=== PATIENT | female | born 1940 | race Caucasian/White ===

== ENCOUNTER → 2016-08-09 | Outpatient (CLI) | payer OTHER ==
[~2016-08-09] MED LIST: FISH OIL 1,001000 M1 PO; LESCOL XL80 MG PO; LEVOTHROID175 MCG PO; LISINOPRIL40 MG PO; METOPROLOL SUCC25 M1 PO; OCUVITE TABLET1 EAC1 PO; PREDNISONE 20 M20 MG PO; PROMETHAZI6.25 MG/2 PO; QVAR HFA 440 MCG/UN1 INH; SPIRIVA INH; SPIRONOLACTONE25 M1 PO; VITAMINC500 PO
== END ==
LOC: CAT 14:07
DX: R06.02 Shortness of breath (principal); J44.9 Chronic obstructive pulmonary disease, unspecified; J90 Pleural effusion, not elsewhere classified

== ENCOUNTER 2017-11-29 12:45 | Emergency (ER) | payer OTHER ==
[~2017-11-29] VITALS: Ht 165.1 cm; Wt 43.1 kg
--- NOTE | ~2017-11-29 | EKG ---
[address] [address] ELECTROCARDIOGRAM REPORT Name: SANDRAANTONIO Lelo Room #: DEP [facility]#: [id number] Admission: 11/29/17 Attend Phys: Discharge: 11/29/17 Date of : 38 Report #: [id number] THIS REPORT FOR: //name// [facility] ED Test Date: 2017-11-29 Test Time: 13:05:57 Pat Name: ANTONIO FLORES Department: Room: Gender: F Dining Manager: 11 : 1940 Requested By: Florecita Darnell Order Number: [id number] MD: Dedrick Luevano Measurements Intervals [place] Rate: 97 P: 91 [place]: 134 QRS: 81 QRSD: 78 T: 69 QT: 324 QTc: 412 Interpretive Statements Sinus tachycardia Atrial premature complexes Biatrial enlargement Compared to ECG 01/27/2009 12:33:07 Atrial premature complex(es) now present ST (T wave) deviation no longer present Electronically Signed On 11-30-2017 8:33:02 CDT by Dedrick Luevano [email or web address] <ELECTRONICALLY SIGNED> By: Dedrick Luevano MD, [facility] 11/30/17 0833 1305 1305 Dedrick Luevano MD, [facility] /EPI
[2017-11-29] MEDS ORDERED: SYNTHROID88 MCG PO (12:53)
[2017-11-29 13:34] LABS: ABSOLUTE NEUTROPHILS 4.8 thou/uL (1.4-8.2); BASOPHILS 0.3 % (0.0-2.0); EOSINOPHILS 0.1 % (0.0-3.0); HEMATOCRIT 39.7 % (37.0-47.0); HEMOGLOBIN 13.7 gm/dL (12.0-15.0); LYMPHOCYTES 7.2 % (24.0-44.0); MCH 31.7 pg (26.0-34.0); MCHC 34.6 g/dL (28.0-37.0); MCV 91.6 fL (80.0-100.0); MONOCYTES 7.4 % (1.0-8.0); PLATELET COUNT 145 thou/uL (150-400); RBC 4.33 mil/uL (4.20-5.00); WBC 5.6 thou/uL (4.0-11.0)
[2017-11-29 13:45] LABS: ANION GAP 7 mmol/L (7-16); BUN 21 mg/dL (7-18); CALCIUM 9.5 mg/dL (8.5-10.1); CHLORIDE 96 mmol/L (98-107); CO2 27 mmol/L (21-32); GLUCOSE 100 mg/dL (74-106); POTASSIUM 4.4 mmol/L (3.5-5.1); SODIUM 130 mmol/L (136-145)
[2017-11-29 13:53] LABS: ALBUMIN 3.8 g/dL (3.4-5.0); DIRECT BILIRUBIN 0.2 mg/dL (<0.1-0.3); LIPASE 162 U/L (73-393); SGOT 23 U/L (15-37); SGPT 23 U/L (30-65); TOTAL PROTEIN 7.6 g/dL (6.4-8.2); TROPONIN-I < 0.04 ng/mL (<0.06)
[2017-11-29] MEDS ORDERED: ZPAK PO (14:35)
[2017-11-29] MEDS ORDERED: PREDNISONE 20 M20 M1 PO (14:35)
== END 2017-11-29 15:15 | disposition home or self-care (01) ==
LOC: ER 12:45
PROVIDERS: Emergency Medicine
DX: J44.1 Chronic obstructive pulmonary disease with (acute) exacerbation (principal); J06.9 Acute upper respiratory infection, unspecified; K21.9 Gastro-esophageal reflux disease without esophagitis; I10 Essential (primary) hypertension; E78.5 Hyperlipidemia, unspecified; Z90.49 Acquired absence of other specified parts of digestive tract; Z95.811 Presence of heart assist device; Z87.891 Personal history of nicotine dependence

== ENCOUNTER → 2019-08-26 | Outpatient (CLI) | payer OTHER ==
[~2019-08-26] MED LIST changes: +PREDNISONE 20 M20 M1 PO; +SYNTHROID88 MCG PO; +ZPAK PO
== END ==
LOC: SJCVC 13:23
DX: I25.10 Atherosclerotic heart disease of native coronary artery without angina pectoris (principal); I10 Essential (primary) hypertension; I70.1 Atherosclerosis of renal artery; K55.1 Chronic vascular disorders of intestine; E78.00 Pure hypercholesterolemia, unspecified; I65.23 Occlusion and stenosis of bilateral carotid arteries; J44.9 Chronic obstructive pulmonary disease, unspecified; E03.9 Hypothyroidism, unspecified; M81.0 Age-related osteoporosis without current pathological fracture; Z79.82 Long term (current) use of aspirin; Z79.899 Other long term (current) drug therapy

== ENCOUNTER → 2019-09-29 | Outpatient (CLI) | payer OTHER | LOC: SJCVCIMAG 08:11 | DX: I65.23 Occlusion and stenosis of bilateral carotid arteries (principal); K55.1 Chronic vascular disorders of intestine; I73.9 Peripheral vascular disease, unspecified; I10 Essential (primary) hypertension; I25.10 Atherosclerotic heart disease of native coronary artery without angina pectoris; E78.5 Hyperlipidemia, unspecified; J44.9 Chronic obstructive pulmonary disease, unspecified; Z87.891 Personal history of nicotine dependence; Z88.1 Allergy status to other antibiotic agents; Z79.82 Long term (current) use of aspirin ==

== ENCOUNTER → 2019-10-07 | Outpatient (CLI) | payer OTHER ==
[2019-10-07 09:46] LABS: CREATININE 0.9 mg/dL (0.6-1.0)
== END ==
LOC: CAT 08:53
PROVIDERS: Internal Medicine Cardiovascular Disease
DX: N28.9 Disorder of kidney and ureter, unspecified (principal)

== ENCOUNTER → 2020-05-31 | Outpatient (CLI) | payer OTHER | LOC: SJCVC 10:57 | PROVIDERS: ATTEND Internal Medicine Cardiovascular Disease | DX: I25.10 Atherosclerotic heart disease of native coronary artery without angina pectoris (principal); I10 Essential (primary) hypertension; E78.00 Pure hypercholesterolemia, unspecified; I73.9 Peripheral vascular disease, unspecified; J44.9 Chronic obstructive pulmonary disease, unspecified; I65.23 Occlusion and stenosis of bilateral carotid arteries; I77.1 Stricture of artery; I70.1 Atherosclerosis of renal artery ==

== ENCOUNTER → 2020-12-15 | Outpatient (CLI) | payer OTHER | LOC: CAT 13:52 | PROVIDERS: ATTEND Internal Medicine | DX: R91.8 Other nonspecific abnormal finding of lung field (principal); J98.11 Atelectasis; I25.10 Atherosclerotic heart disease of native coronary artery without angina pectoris; I70.0 Atherosclerosis of aorta; R91.1 Solitary pulmonary nodule; R06.02 Shortness of breath ==

== ENCOUNTER → 2021-04-04 | Outpatient (CLI) | payer OTHER | LOC: RAD 10:51 | PROVIDERS: ATTEND Internal Medicine | DX: J44.9 Chronic obstructive pulmonary disease, unspecified (principal) ==